=== PATIENT | male | born 1995 | race Two or more races ===

== ENCOUNTER 2020-12-22 13:49 | Emergency (ER) | payer OTHER ==
[~2020-12-22] VITALS: Ht 165.1 cm; Wt 59.4 kg
[2020-12-22] MEDS ORDERED: ATIVAN1 M1 PO (14:08)
[2020-12-22] MEDS ORDERED: HALDOL DEC50 MG/1 ML (14:49)
== END 2020-12-22 17:27 | disposition home or self-care (01) ==
LOC: ER 13:49
DX: R42 Dizziness and giddiness (principal); R41.82 Altered mental status, unspecified

== ENCOUNTER 2020-12-22 18:02 | Emergency (ER) | payer OTHER ==
[~2020-12-22] VITALS: Ht 167.6 cm; Wt 72.6 kg
[~2020-12-22 18:02] MED LIST: ATIVAN1 M1 PO; HALDOL DEC50 MG/1 ML
== END 2020-12-22 20:37 | disposition home or self-care (01) ==
LOC: ER 18:02
DX: R55 Syncope and collapse (principal); R53.1 Weakness; T40.7X5A Adverse effect of cannabis (derivatives), initial encounter

== ENCOUNTER 2020-12-23 07:16 | Emergency (ER) | payer OTHER ==
[~2020-12-23] VITALS: Ht 177.8 cm; Wt 61.2 kg
== END 2020-12-23 14:52 | disposition home or self-care (01) ==
LOC: ER 07:16
DX: G25.1 Drug-induced tremor (principal); T43.4X5A Adverse effect of butyrophenone and thiothixene neuroleptics, initial encounter